=== PATIENT | male | born 1960 | race Caucasian/White ===

== ENCOUNTER 2021-07-18 12:35 | Inpatient (IN) | payer MEDICARE, OTHER ==
[~2021-07-18] VITALS: Ht 182.9 cm; Wt 90.3 kg
[~2021-07-18 12:35] MED LIST: ALPRAZOLAM ER1 MG PO; ATORVASTATIN CA20 MG PO; BENTYL 10MG CAP10 MG PO; BENTYL 20MG TAB20 MG PO; CLOPIDOGREL75 MG PO; CRESTOR10 MG PO; ELAVIL 50 MG TA50 MG PO; FEOSOL325 MG PO; IBUPROFEN600 MG PO; IBUPROFEN800 MG PO; IMDUR ER TAB 3030 MG PO; LOPRESSOR 50 MG50 MG PO; LYRICA150 MG PO; MIRAPEX0.25 MG PO; NICOTINE PATCH1 EAC1 TOP; NITROGLYCERIN0.4 MG SL; PERCOCET 5/325 T1 EA PO; PLETAL 100 MG100 MG PO; PROSCAR5 MG PO; PROTONIX40 MG PO; VITAMIN B-121000 MCG PO; XANAX1 MG PO; ZOFRAN ODT 4 MG4 MG SL
[2021-07-18 12:58] LABS: HEMOGLOBIN 16.3 gm/dl (14.0-17.5); RED BLOOD COUNT 4.81 M/UL (4.20-5.50); WHITE BLOOD COUNT 10.5 K/UL (4.5-11.0)
[2021-07-18 13:22] LABS: BUN/CREATININE RATIO 10 (0-10)
[2021-07-19 03:36] LABS: HEMOGLOBIN 15.2 gm/dl (14.0-17.5); RED BLOOD COUNT 4.54 M/UL (4.20-5.50); WHITE BLOOD COUNT 8.4 K/UL (4.5-11.0)
[2021-07-19 04:07] LABS: BUN/CREATININE RATIO 14 (0-10)
== END 2021-07-19 12:20 | disposition short-term general hospital (02) | DRG 281 ==
LOC: ER1 12:35 → CDU 14:48 → M/S 14:48
PROVIDERS: Emergency Medicine; Physician Assistant; ADMIT Internal Medicine
PROC: B2111ZZ Fluoroscopy of Multiple Coronary Arteries using Low Osmolar Contrast (ICD-10-PCS; principal; 2021-07-19)
PROC: B2161ZZ Fluoroscopy of Right and Left Heart using Low Osmolar Contrast (ICD-10-PCS; 2021-07-19)
DX: I21.4 Non-ST elevation (NSTEMI) myocardial infarction (principal); I16.9 Hypertensive crisis, unspecified; Z95.1 Presence of aortocoronary bypass graft; E78.5 Hyperlipidemia, unspecified; F17.210 Nicotine dependence, cigarettes, uncomplicated; I10 Essential (primary) hypertension; D75.89 Other specified diseases of blood and blood-forming organs; I25.110 Atherosclerotic heart disease of native coronary artery with unstable angina pectoris; Z20.822 Contact with and (suspected) exposure to COVID-19; E11.9 Type 2 diabetes mellitus without complications; Z90.49 Acquired absence of other specified parts of digestive tract; Z90.89 Acquired absence of other organs; Z87.11 Personal history of peptic ulcer disease; Z98.890 Other specified postprocedural states; Z91.041 Radiographic dye allergy status; Z91.013 Allergy to seafood; Z81.8 Family history of other mental and behavioral disorders; Z84.89 Family history of other specified conditions
CPT/HCPCS: 36415; 71045; 80048; 80053; 82550; 82553; 83690; 83874; 84484; 85025; 85347; 85610; 85730; 93005; 96374; 96375; 99152; 99153; 99285; C1769; C1887; J1200; J1644; J2250; J2270; J2405; J2930; J3010; J7040; Q9967; U0002

== ENCOUNTER 2022-04-30 21:21 | Emergency (ER) | payer MEDICARE, OTHER ==
[2022-04-30 23:35] LABS: HEMOGLOBIN 15.2 gm/dl (14.0-17.5); RED BLOOD COUNT 4.42 M/UL (4.20-5.50); WHITE BLOOD COUNT 9.7 K/UL (4.5-11.0)
[2022-05-01 00:03] LABS: BUN/CREATININE RATIO 12 (0-10)
== END 2022-05-01 01:11 | disposition home or self-care (01) ==
LOC: ER1 21:21
PROVIDERS: Student in an Organized Health Care Education/Training Program
DX: M54.50 Low back pain, unspecified (principal); G89.29 Other chronic pain; I10 Essential (primary) hypertension; E78.5 Hyperlipidemia, unspecified; F17.200 Nicotine dependence, unspecified, uncomplicated
CPT/HCPCS: 72131; 80053; 85025; 85652; 86140; 96374; 96375; 99284; J1100; J2270

== ENCOUNTER 2022-05-07 19:01 | Emergency (ER) | payer MEDICARE, OTHER ==
[2022-05-07 19:57] LABS: HEMOGLOBIN 15.9 gm/dl (14.0-17.5); RED BLOOD COUNT 4.57 M/UL (4.20-5.50); WHITE BLOOD COUNT 11.2 K/UL (4.5-11.0)
[2022-05-07 20:10] LABS: BUN/CREATININE RATIO 9 (0-10)
== END 2022-05-07 22:35 | disposition home or self-care (01) ==
LOC: ER1 19:01
PROVIDERS: Student in an Organized Health Care Education/Training Program
DX: R10.9 Unspecified abdominal pain (principal); R10.817 Generalized abdominal tenderness; I11.9 Hypertensive heart disease without heart failure; E78.5 Hyperlipidemia, unspecified; Z90.49 Acquired absence of other specified parts of digestive tract; Z90.89 Acquired absence of other organs; Z95.1 Presence of aortocoronary bypass graft; Z95.5 Presence of coronary angioplasty implant and graft; Z88.8 Allergy status to other drugs, medicaments and biological substances; Z91.041 Radiographic dye allergy status; F17.210 Nicotine dependence, cigarettes, uncomplicated
CPT/HCPCS: 80053; 80076; 82550; 82553; 83605; 83690; 84484; 85025; 93005; 96374; 96375; 99284; J1170; J1200; J2270; J2405; J2930; Q9967

== ENCOUNTER 2022-05-09 12:42 | Emergency (ER) | payer MEDICARE, OTHER ==
[2022-05-09] MEDS ORDERED: CYCLOBENZAPRINE5 MG PO (15:29)
[2022-05-09] MEDS ORDERED: PREDNISONE 20 M20 MG PO (15:29)
== END 2022-05-09 15:34 | disposition home or self-care (01) ==
LOC: ER1 12:42
DX: G89.29 Other chronic pain (principal); M54.50 Low back pain, unspecified; R10.30 Lower abdominal pain, unspecified; F17.200 Nicotine dependence, unspecified, uncomplicated; Z91.041 Radiographic dye allergy status; Z95.1 Presence of aortocoronary bypass graft; Z95.5 Presence of coronary angioplasty implant and graft
CPT/HCPCS: 81001; 96372; 99283; J1885

== ENCOUNTER → 2022-05-25 | Outpatient (CLI) | payer MEDICARE, OTHER ==
[~2022-05-25] MED LIST changes: +CYCLOBENZAPRINE5 MG PO; +PREDNISONE 20 M20 MG PO
== END ==
LOC: KOH-I 09:30
DX: M51.16 Intervertebral disc disorders with radiculopathy, lumbar region (principal); M48.061 Spinal stenosis, lumbar region without neurogenic claudication
CPT/HCPCS: 72148

== ENCOUNTER 2022-06-28 13:29 | Emergency (ER) | payer MEDICARE, OTHER ==
[2022-06-28 14:29] LABS: HEMOGLOBIN 17.5 gm/dl (14.0-17.5); RED BLOOD COUNT 5.15 M/UL (4.20-5.50); WHITE BLOOD COUNT 10.6 K/UL (4.5-11.0)
[2022-06-28 14:50] LABS: BUN/CREATININE RATIO 12 (0-10)
[2022-06-29] MEDS ORDERED: MEDROL DOSEPAK 24 MG PO (02:36)
[2022-06-29] MEDS ORDERED: WIXELA 250-501 EACH PO (02:36)
[2022-06-29] MEDS ORDERED: PROAIR HFA8.5 GM INH (02:36)
== END 2022-06-29 02:53 | disposition home or self-care (01) ==
LOC: ER1 13:29
PROVIDERS: Physician Assistant
DX: J06.9 Acute upper respiratory infection, unspecified (principal); J44.9 Chronic obstructive pulmonary disease, unspecified; R00.0 Tachycardia, unspecified; Z20.822 Contact with and (suspected) exposure to COVID-19; I25.2 Old myocardial infarction; I10 Essential (primary) hypertension; E78.5 Hyperlipidemia, unspecified; F17.210 Nicotine dependence, cigarettes, uncomplicated; Z95.5 Presence of coronary angioplasty implant and graft; Z95.1 Presence of aortocoronary bypass graft; Z90.49 Acquired absence of other specified parts of digestive tract; Z90.89 Acquired absence of other organs; Z91.013 Allergy to seafood
CPT/HCPCS: 36600; 71045; 71275; 80053; 82550; 82553; 82803; 83605; 83880; 84484; 85025; 85379; 87040; 93005; 96374; 96375; 99285; J1200; J2930; Q9967; U0002